=== PATIENT | male | born 1950 | race Caucasian/White ===

== ENCOUNTER → 2016-09-20 | Outpatient (CLI) | payer BC ==
[~2016-09-20] MED LIST: ASP81CT PO; ATOR20TA66 PO; ATRV10T PO; CALC-80 PO; CHOL200018 PO; CYAN500L PO; FLAX100031 PO; MULT-35 PO; MULT-608 PO; NF-METANX PO
== END ==
LOC: PREOP 05:34
PROVIDERS: ATTEND Surgery Pediatric Surgery
DX: Z01.818 Encounter for other preprocedural examination (principal); Z12.11 Encounter for screening for malignant neoplasm of colon; Z86.010 Personal history of colon polyps

== ENCOUNTER → 2016-10-16 | Outpatient (CLI) | payer BC ==
[~2016-10-16] VITALS: Ht 193 cm; Wt 97.5 kg
--- OUTSIDE RECORDS SUMMARY | 2016-10-16 05:45 | XMS REPORT | Continuity of Care Document ---
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 04/26/2011 Ot 780.2 SYNCOPE AND COLLAPSE 04/26/2011 Ot 786.59 CHEST PAIN NEC 04/26/2011 Ot V58.66 LONG-TERM (CURRENT) USE OF ASPIRIN 04/26/2011 Ot V58.69 OTH MED,LT,CURRENT USE 07/21/2011 Ot 603.9 HYDROCELE NOS 07/21/2011 Ot 608.1 SPERMATOCELE 07/21/2011 Ot 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 09/23/2013 SINAN GIORDANO DO Ot 211.3 BENIGN NEOPLASM LG BOWEL 09/23/2013 SINAN GIORDANO DO Ot V76.51 SCREEN MAL NEOP-COLON 07/06/2014 Ot 414.00 07/06/2014 Ot 786.50 07/06/2014 Ot 608.89 07/06/2014 Ot 608.1 07/06/2014 Ot V72.84 07/06/2014 Ot V74.8 07/06/2014 Ot 789.00 07/06/2014 SINAN GIORDANO DO Ot V72.84 07/06/2014 SINAN GIORDANO DO Ot V72.84 07/06/2014 Ot 414.00 07/06/2014 Ot 786.50 07/06/2014 Ot 608.89 07/06/2014 Ot 608.1 07/06/2014 Ot V72.84 07/06/2014 Ot V74.8 07/06/2014 Ot 789.00 07/06/2014 SINAN GIORDANO DO Ot V72.84 07/06/2014 SINAN GIORDANO DO Ot V72.84 09/13/2016 Ot 414.00 CORON ATHEROSCLER NOS TYPE VESSEL, NATIV 09/13/2016 Ot 786.50 CHEST PAIN NOS 09/13/2016 Ot 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 09/13/2016 Ot 608.1 SPERMATOCELE 09/13/2016 Ot V72.84 EXAM PRE-OPERATIVE NOS 09/13/2016 Ot V74.8 SCREEN-BACTERIAL DIS NEC 09/13/2016 Ot 789.00 ABDOMINAL PAIN, UNSPECIFIED SITE 09/13/2016 SINAN GIORDANO DO Ot V72.84 EXAM PRE-OPERATIVE NOS 09/13/2016 SINAN GIORDANO DO Ot V72.84 EXAM PRE-OPERATIVE NOS 09/18/2016 Ot 414.00 CORON ATHEROSCLER NOS TYPE VESSEL, NATIV 09/18/2016 Ot 786.50 CHEST PAIN NOS 09/18/2016 Ot 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 Visit Date/Time Discharge Status Pt. Type Provider Facility Loc./Unit Complaint [id number] 09/23/2013 11:54:00 2013 14:50:00 DIS Outpatient SINAN GIORDANO DO [facility] SCREENING [id number] 09/18/2013 07:18:00 2013 23:59:59 CLS Outpatient SINAN GIORDANO DO [facility] PREOP SCREENING [id number] 07/09/2013 08:12:00 2012 23:59:59 CLS Outpatient SINAN GIORDANO DO [facility] PREOP SCREENING [id number] 10/16/2016 05:41:00 ACT Outpatient DEEDEE DIAZ MD [facility] PREOP HISTORY POLYPS [id number] 09/20/2016 05:34:00 ACT Outpatient DEEDEE DIAZ MD [facility] PREOP SCREENING [id number] 07/16/2012 14:42:00 Document Registration [id number] 07/20/2011 05:43:00 Document Registration [id number] 07/17/2011 13:24:00 Document Registration [id number] 07/10/2011 11:46:00 Document Registration [id number] 04/26/2011 08:42:00 Document Registration [id number] 04/24/2011 06:36:00 Document Registration [id number] 02/16/2009 15:22:00 Document Registration
== END ==
LOC: PREOP 05:41
PROVIDERS: ATTEND Surgery Pediatric Surgery
DX: Z01.818 Encounter for other preprocedural examination (principal); Z12.11 Encounter for screening for malignant neoplasm of colon; Z86.010 Personal history of colon polyps

== ENCOUNTER 2016-10-18 08:37 | Day surgery (SDC) | payer BC ==
--- OUTSIDE RECORDS SUMMARY | 2016-10-18 08:41 | XMS REPORT | Continuity of Care Document ---
Author Author [facility] Organization [facility] Address Unknown Phone Unavailable Allergies Active Description Code Type Severity Reaction Onset Reported/Identified Relationship to Patient Clinical Status Yes iVP DYE iVP DYE Mild SMALL .5 CM HIV 03/20/2008 Yes No Known Drug Allergies [id number] Drug Allergy Unknown N/ A 10/16/2016 Medications Problems Date Dx Coded Attending Type [...] Status Pt. Type Provider Facility Loc./Unit Complaint [id number] 09/23/2013 11:54:00 2013 14:50:00 DIS Outpatient SINAN GIORDANO DO [facility] SCREENING [id number] 09/18/2013 07:18:00 2013 23:59:59 CLS Outpatient SINAN GIORDANO DO [facility] PREOP SCREENING [id number] 07/09/2013 08:12:00 2012 23:59:59 CLS Outpatient SINAN GIORDANO DO [facility] PREOP SCREENING [id number] 10/16/2016 05:41:00 ACT Outpatient DEEDEE DIAZ MD [facility] PREOP HISTORY POLYPS [id number] 09/20/2016 05:34:00 ACT Outpatient DEEDEE DIAZ MD [facility] PREOP SCREENING [id number] 07/16/2012 14:42:00 Document Registration [id number] 07/20/2011 05:43:00 Document Registration [id number] 07/17/2011 13:24:00 Document Registration [id number] 07/10/2011 11:46:00 Document Registration [id number] 04/26/2011 08:42:00 Document Registration [id number] 04/24/2011 06:36:00 Document Registration [id number] 02/16/2009 15:22:00 Document Registration
--- OUTSIDE RECORDS SUMMARY | 2016-10-18 08:41 | XMS REPORT | Continuity of Care Document ---
Author Author [facility] Organization [facility] Address Unknown Phone Unavailable Allergies Active Description Code Type Severity Reaction Onset Reported/Identified Relationship to Patient Clinical Status Yes iVP DYE iVP DYE Mild SMALL .5 CM HIV 03/20/2008 Yes No Known Drug Allergies [id number] Drug Allergy Unknown N/ A 10/16/2016 Medications [...] Status Pt. Type Provider Facility Loc./Unit Complaint [id number] 09/23/2013 11:54:00 2013 14:50:00 DIS Outpatient SINAN GIORDANO DO [facility] SCREENING [id number] 09/18/2013 07:18:00 2013 23:59:59 CLS Outpatient SINAN GIORDANO DO [facility] PREOP SCREENING [id number] 07/09/2013 08:12:00 2012 23:59:59 CLS Outpatient SINAN GIORDANO DO [facility] PREOP SCREENING [id number] 10/16/2016 05:41:00 ACT Outpatient DEEDEE DIAZ MD [facility] PREOP HISTORY POLYPS [id number] 09/20/2016 05:34:00 ACT Outpatient DEEDEE DIAZ MD [facility] PREOP SCREENING [id number] 07/16/2012 14:42:00 Document Registration [id number] 07/20/2011 05:43:00 Document Registration [id number] 07/17/2011 13:24:00 Document Registration [id number] 07/10/2011 11:46:00 Document Registration [id number] 04/26/2011 08:42:00 Document Registration [id number] 04/24/2011 06:36:00 Document Registration [id number] 02/16/2009 15:22:00 Document Registration
[2016-10-18 08:55] VITALS: BP 159/83
[2016-10-18] MEDS ORDERED: MIDAZOLAM 2 MG/2 ML (VERSED) VIAL ONE ×3 (08:56→08:57)
[2016-10-18] MEDS ORDERED: LIDOCAINE JELLY 2% (XYLOCAINE) 5 ML TUBE ONE (08:57)
[2016-10-18] MEDS ORDERED: NALOXONE 0.4 MG/ML 1 ML (NARCAN) VIAL IVP PRN (09:00)
[2016-10-18] MEDS ORDERED: FLUMAZENIL (ROMAZICON) 0.1 MG/ML 5 ML VIAL INJ PRN (09:00)
[2016-10-18] MEDS ORDERED: NS IV 500 ML 500 ML IV ONE (09:00)
--- NOTE | 2016-10-18 09:04 | Progress Note-Pre Operative ---
Pre-Operative Progress Note H&P Reviewed The H&P was reviewed, patient examined and no changes noted. Date H&P Reviewed: Oct 18, 2016 Time H&P Reviewed: 08:45 Pre-Operative Diagnosis: hx polyp DEEDEE DIAZ MD Oct 18, 2016 9:04 am
--- NOTE | 2016-10-18 09:04 | Conscious Sedation/ASA ---
Conscious Sedation Pre-Proced Time Reviewed: 08:45 ASA Class: 2 Airway Mallampati Classification: ([place] appropriate class) I. II. III, IV Lungs Heart ASA score ASA 1: a normal healthy patient ASA 2: a patient with a mild systemic disease (mid diabetes, controlled hypertension, obesity ASA 3: a patient with a severe systemic disease that limits activity (angina , COPD, prior Myocardial infarction) ASA 4: a patient with an incapacitating disease that is a constant threat to life (CHF, renal failure) ASA 5: a moribund patient not expected to survive 24 hrs. (ruptured aneurysm) ASA 6: a declared brain patient whose organs are being harvested. For emergent operations, add the letter E after the classification Grade 2 Sedation Plan: Analgesia, Amnesia, Plan communicated to team members, Discussed options with patient/fam, Discussed risks with patient/fam Note The patient is an appropriate candidate to undergo the planned procedure, sedation, and anesthesia. The patient immediately re-assessed prior to indication. DEEDEE DIAZ MD Oct 18, 2016 9:04 am
[2016-10-18] MEDS: fentaNYL INJECTION 100 MCG/2 ML AMP IVP PRN ×4 (09:08→09:32)
[2016-10-18] MEDS: MIDAZOLAM 2 MG/2 ML (VERSED) VIAL IVP PRN ×3 (09:10→09:30)
[2016-10-18] MEDS ORDERED: HYDROcodone/APAP 5 MG/325 MG (LORTAB) TAB PO PRN (09:15)
[2016-10-18] MEDS ORDERED: ONDANSETRON 4 MG/2 ML (SDV) Z0FRAN IV PRN (09:15)
[2016-10-18] MEDS ORDERED: morphine INJ 10 MG/ML 1ML (SYR OR VIAL) IV PRN (09:15)
[2016-10-18] MEDS ORDERED: ACETAMINOPHEN 325 MG TABLET/CAPLET (TYLENOL) PO PRN (09:15)
[2016-10-18 09:50] VITALS: BP 111/72
--- NOTE | 2016-10-18 09:59 | Progress Note-Post Operative ---
Post-Operative Progess Note Pre-Operative Diagnosis hx polyp Post-Operative Diagnosis chronic stage 2 ext and int hemorrhoids, benign anal skin tag. Post-Op Procedure Note Date of Procedure: Oct 18, 2016 Name of Procedure: Colonoscopy Anesthesia Type CS Estimated blood loss (mL): DEEDEE Ritter MD Oct 18, 2016 9:59 am
--- NOTE | 2016-10-18 10:00 | Discharge Inst-Surgical ---
D/C Lap Instructions-EMILY Follow Up 7-10 years Activity as tolerated High Fiber Diet 25g or more per day Avoid Alcohol, Caffeine, Spicy Maxe[place] and Acid foods. Drink 64 fluid oz or more of fluids per day. Symptoms to Report: Fever over 101 degree F, Nausea/Vomiting If any problems/questions: Contact your physician or go to Emergency Room DEEDEE DIAZ MD Oct 18, 2016 10:00 am
[2016-10-18 10:20] VITALS: BP 121/78
[2016-10-18 10:38] VITALS: BP 121/78
--- NOTE | 2016-10-19 09:34 | OPERATIVE REPORT ---
PROCEDURE PHYSICIAN: DEEDEE MURPHY DATE OF PROCEDURE: 10/18/2016 ATTENDING PRIMARY CARE PHYSICIAN: Dr. Presley. PREOPERATIVE DIAGNOSES: History of colon polyp. POSTOPERATIVE DIAGNOSES: 1. Chronic, stage II external and internal hemorrhoids. 2. Benign anal skin tag. 3. The remainder of the rectum and colon were normal. PROCEDURE: Colonoscopy. SURGEON: Dr. Murphy. ANESTHESIA: Conscious sedation. ESTIMATED BLOOD LOSS: Minimal. FINDINGS: 1. Chronic, stage II external and internal hemorrhoids with benign anal skin tag. 2. The remainder of the rectum and colon were normal. 3. There were no polyps or any neoplasms identified. DISPOSITION: The patient tolerated the procedure well. BRIEF HISTORY: Mr. Almas Muñoz is a 66-year-old male in need of a follow-up colonoscopy. His last colonoscopy was approximately 5 years ago where he was found to have a polyp which was removed and found to be benign. He reports for the most part he is doing well and does not have any major issues with diarrhea nor constipation, as well as no red blood per rectum nor any dark tarry stools. He also does not report any family history of colon cancer. PROCEDURE: The patient was brought to the endoscopy suite, laid in the left lateral decubitus position with the head slightly elevated. After adequate IV pain and sedative medication and conscious sedation anesthesia, a digital rectal examination was performed. Chronic, stage II external and internal hemorrhoids were identified which were not actively edematous or inflamed and no bleeding. There was also a small pedunculated skin tag which appeared benign and asymptomatic. Normal sphincter tone was felt and there were no palpable masses. The prostate gland was palpable and appeared normal. The endoscope was then intubated into the anus and the rectum gently insufflated. The endoscope was then advanced through the valves of Garcia the rectum with no polyps or any neoplasms identified. We then advanced the endoscope through the sigmoid colon where no diverticulosis identified. We then proceeded through the remainder of the descending, transverse, and ascending colon to the cecum. These segments were normal. There were no polyps or any neoplasms identified throughout the colon or rectum. The endoscope was then slowly withdrawn while taking a second look and suctioning of residual air with no additional findings. The patient tolerated the procedure well. We will have him continue with medical management with a high fiber diet with at least 30 grams of fiber per day, as well as at least 64 fluid ounces of water daily to promote soft stools on a daily basis. He does not need another colonoscopy for another 7 to 10 years. Job ID: [id number] Dictated Date: 10/18/2016 09:47:12 Bomb Loader Date: 10/19/2016 09:28:32 / carloz PORRAS
== END 2016-10-18 10:38 | disposition home or self-care (01) ==
LOC: ENDO 08:37
PROVIDERS: ATTEND Surgery Pediatric Surgery
DX: K64.1 Second degree hemorrhoids (principal); K64.4 Residual hemorrhoidal skin tags; Z86.010 Personal history of colon polyps

== ENCOUNTER 2017-05-14 07:06 | Outpatient (RCR) | payer BC, MEDICARE ==
[~2017-05-14 07:06] MED LIST changes: -CATHETER FLUSH 10 ML SYR IV PRN
== END 2017-08-12 | disposition home or self-care (01) ==
LOC: CARD 07:06
PROVIDERS: ATTEND Physician Assistant
DX: I25.10 Atherosclerotic heart disease of native coronary artery without angina pectoris (principal); I97.3 Postprocedural hypertension; E78.2 Mixed hyperlipidemia; R55 Syncope and collapse; Z82.49 Family history of ischemic heart disease and other diseases of the circulatory system
CPT/HCPCS: 93225; 93226

== ENCOUNTER → 2017-05-14 | Outpatient (CLI) | payer BC, MEDICARE ==
[~2017-05-14] VITALS: Ht 190.5 cm; Wt 98.9 kg
[~2017-05-14] MED LIST changes: +CATHETER FLUSH 10 ML SYR IV PRN
[2017-05-14 09:05] VITALS: BP 137/69
== END ==
LOC: CARD 07:02
PROVIDERS: ATTEND Physician Assistant
DX: I25.10 Atherosclerotic heart disease of native coronary artery without angina pectoris (principal); I10 Essential (primary) hypertension; E78.5 Hyperlipidemia, unspecified; R55 Syncope and collapse; Z82.49 Family history of ischemic heart disease and other diseases of the circulatory system
CPT/HCPCS: 78452; 93017

== ENCOUNTER → 2017-05-21 | Outpatient (CLI) | payer BC, MEDICARE ==
[2017-05-21] VITALS (25 sets, daily range): BP systolic 66–146; BP diastolic 41–100
[~2017-05-21] MED LIST changes: +ATROPINE INJECTION 1 MG/10 ML SYR (ABBOTT) ONE; +NS IV 1000 ML 1,000 ML ONE
--- NOTE | 2017-05-21 10:46 | Cardiology Tilt Table Test ---
Cardiology-Tilt Table Test Tilt Table Test Date 05/21/17 Baseline Vitals Vital Signs Date Time Temp Pulse Resp B/P (MAP) Pulse Ox O2 Delivery O2 Flow Rate FiO2 05/21/17 09:59 57 17 146/83 99 Room Air Vital Signs VS - Last 72 Hours, by Label 05/21/17 05/21/17 05/21/17 05/21/17 09:59 10:03 10:05 10:06 Pulse 57 63 68 68 Resp 17 18 B/P (MAP) 146/83 144/87 127/82 144/100 Pulse Ox 99 O2 Delivery Room Air 05/21/17 05/21/17 05/21/17 05/21/17 10:07 10:08 10:09 10:10 Pulse 70 63 71 73 B/P (MAP) 141/86 138/94 126/87 130/100 05/21/17 05/21/17 05/21/17 05/21/17 10:11 10:12 10:14 10:15 Pulse 70 60 60 66 B/P (MAP) 137/92 138/89 144/86 05/21/17 05/21/17 05/21/17 05/21/17 10:16 10:17 10:18 10:19 Pulse 60 62 82 96 B/P (MAP) 132/90 125/79 116/83 113/82 05/21/17 05/21/17 05/21/17 05/21/17 10:20 10:21 10:22 10:23 Pulse 100 103 98 87 B/P (MAP) 124/88 95/67 109/73 05/21/17 05/21/17 05/21/17 05/21/17 10:24 10:25 10:26 10:27 Pulse 93 89 82 81 B/P (MAP) 76/56 86/60 82/53 05/21/17 05/21/17 05/21/17 05/21/17 10:28 10:29 10:33 10:35 Pulse 75 63 52 55 B/P (MAP) 66/41 126/71 122/79 Patient was tilted to 75 degrees for [10] minutes, then returned to supine position, given [2] sublingual nitroglycerin tablets, then tilted again to 75 degrees for [15] minutes. During test, patient was: had a syncopal event at minute (8, stage 2. BP 66/41 , HR 75. ) In Conclusion;: Vasovagal Syncope with (Vasodepressor Syncope) .Patient was hypotensive and symptomatic 5 min prior to syncopal episode. Has underlying bradycardia, although heart rate remained stable throughout test. I will avoid the use of beta blockers. Patient was instructed to increase fluids. Discussed use of LARRY hose. This is Ade Ortez PA-C as a scribe for Dr. Viveros. ADE KEANE May 21, 2017 10:46
== END ==
LOC: CARD 08:41
PROVIDERS: ATTEND Physician Assistant
DX: I25.10 Atherosclerotic heart disease of native coronary artery without angina pectoris (principal); E78.5 Hyperlipidemia, unspecified; I97.3 Postprocedural hypertension; R55 Syncope and collapse; Z82.49 Family history of ischemic heart disease and other diseases of the circulatory system
CPT/HCPCS: 93306; 93660

== ENCOUNTER 2018-03-16 12:30 | Outpatient (RCR) | payer BC, MEDICARE ==
[~2018-03-16 12:30] MED LIST changes: -ATROPINE INJECTION 1 MG/10 ML SYR (ABBOTT) ONE; -NS IV 1000 ML 1,000 ML ONE
== END 2018-05-21 | disposition home or self-care (01) ==
LOC: CARD 12:30
PROVIDERS: ATTEND Family Medicine
DX: R55 Syncope and collapse (principal)
CPT/HCPCS: 93270

== ENCOUNTER 2019-01-13 20:00 | Observation (INO) | payer MEDICARE, OTHER ==
[~2019-01-13] VITALS: Ht 193 cm; Wt 87.1 kg
[2019-01-13] MEDS ORDERED: NS IV 1000 ML 1,000 ML IV ONE (20:09)
[2019-01-13 20:15] LABS: BASOPHILS % (AUTO) 0 % (0-10); EOSINOPHILS # (AUTO) 0.3 10^3/uL (0.0-0.3); EOSINOPHILS % (AUTO) 3 % (0-10); HEMATOCRIT 41 % (40-54); HEMOGLOBIN 13.8 G/DL (13.3-17.7); LYMPHOCYTES # (AUTO) 2.9 X 10^3 (1.0-4.0); LYMPHOCYTES % (AUTO) 35 % (12-44); MEAN CORPUSCULAR HEMOGLOBIN 32 PG (25-34); MEAN CORPUSCULAR HGB CONC 34 G/DL (32-36); MEAN CORPUSCULAR VOLUME 95 FL (80-99); MEAN PLATELET VOLUME 10.8 FL (7.4-10.4); MONOCYTES # (AUTO) 0.8 X 10^3 (0.0-1.0); MONOCYTES % (AUTO) 10 % (0-12); NEUTROPHILS # (AUTO) 4.3 X 10^3 (1.8-7.8); NEUTROPHILS % (AUTO) 51 % (42-75); PLATELET COUNT 193 10^3/uL (130-400); RED CELL DISTRIBUTION WIDTH 12.7 % (10.0-14.5); WHITE BLOOD COUNT 8.3 10^3/uL (4.3-11.0)
--- NOTE | 2019-01-13 20:24 | ED Neurological Problem ---
General Stated Complaint: SYNCOPAL EPISODE Source: patient Exam Limitations: no limitations, physical impairment History of Present Illness Date Seen by Provider: Jan 13, 2019 Time Seen by Provider: 20:03 Initial Comments Here by EMS with report of syncopal episode versus seizure versus possible stroke. Son reports that he and his dad were at the house and he heard a weird breathing noise coming from his dad who was downstairs. He has heard that before when his father apparently has had at least 2 other episodes of seizures or seizure-like activity. He went downstairs and found his dad laying on the couch with the clenched mouth breathing but not significantly shaking. He was a little stiff. It does not appear that he fell although the coffee table was moved back a little bit. No obvious signs of injury. EMS was summoned. He was somewhat responsive when EMS arrived and has improved since. Patient does have history of at least one seizure in the past but is not currently on medications for this. He is answering questions and following commands but does appear somewhat confused. Initial blood pressure in the 200s systolic but that has improved per EMS. Blood sugar low 100s per EMS. No obvious injuries. Patient denies any complaints but is confused. Last known well time 1930. He has had rather significant workup per the son regarding this and they have not found anything including seizure disorder on those workups. Apparently he will start to feel weak and then this will happen and they're not sure if its low blood sugar, low blood pressure or high blood pressure that may be precipitating it. Son does report that the patient had just made a cup of coffee but did not get to it when this had happened. Timing/Duration: unknown Severity: moderate Associated Symptoms: confusion; No fever/chills; loss of consciousness; No nausea/vomiting; seizures, weakness Allergies and Home Medications Allergies Coded Allergies: No Known Drug Allergies (Unverified , 10/16/16) Home Medications Atorvastatin Calcium 20 Mg Tablet, 10 MG PO HS, (Reported) Patient Home Medication List Home Medication List Reviewed: Yes Review of Systems Review of Systems Constitutional: see HPI; No chills, No fever Eyes: No Symptoms Reported Respiratory: no symptoms reported Cardiovascular: see HPI Psychiatric/Neurological: See HPI Unable to completely review of systems due to altered mental status. Past Kcwyktz-Uezwbw-Gjwpmv Hx Past Med/Social Hx: Reviewed Nursing Past Med/Soc Hx Patient Social History Smoking Status: Former Smoker Former Smoker, Quit: Oct 16, 1977 Recent Hopitalizations: No Seasonal Allergies Seasonal Allergies: No Past Medical History Cardiac: Yes High Cholesterol Reproductive Disorders: No Sexually Transmitted Disease: No HIV/AIDS: No Gastrointestinal: Yes Polyps Arthritis Loss of Vision: Bilateral Hearing Impairment: Denies Adverse Reaction/Blood Tranf: No (N/A) Family Medical History Reviewed Nursing Family Hx Physical Exam Vital Signs Vital Signs - First Documented 01/13/19 20:01 Temp 98.4 Pulse 115 Resp 16 B/P (MAP) 167/95 (119) Capillary Refill : Height, Weight, BMI Height: 6'4.00" Weight: 215lbs. 0.0oz. 97.922015oh; 26.2 BMI Method: General Appearance: WD/WN, no apparent distress, other (mildly confused) HEENT: PERRL/EOMI, TMs normal, pharynx normal Neck: non-tender, full range of motion, supple, normal inspection Respiratory: lungs clear, normal breath sounds Cardiovascular: regular rate, rhythm, no murmur Peripheral Pulses: 2+ Dorsalis Pedis (R), 2+ Left Dors-Pedis (L), 2+ Radial Pulses (R), 2+ Radial Pulses (L) Gastrointestinal: non tender, soft Back: normal inspection, no CVA tenderness, no vertebral tenderness Extremities: normal range of motion, non-tender, normal inspection Neurologic/Psychiatric: alert, normal mood/affect, other (disoriented to time but alert to person and place) Crainal Nerves: normal hearing, normal speech, PERRL Coordination/Gait: normal finger to nose Motor/Sensory: no motor deficit, no sensory deficit, no pronator drift Skin: normal color, warm/dry Progress/Results/Core Measures Results/Orders Lab Results Laboratory Tests Test 01/13/19 20:04 01/13/19 20:15 Range/Units White Blood Count 8.3 4.3-11.0 10^3/uL Red Blood Count 4.34 L 4.35-5.85 10^6/uL Hemoglobin 13.8 13.3-17.7 G/DL Hematocrit 41 40-54 % Mean Corpuscular Volume 95 80-99 FL Mean Corpuscular Hemoglobin 32 25-34 PG Mean Corpuscular Hemoglobin Concent 34 32-36 G/DL Red Cell Distribution Width 12.7 10.0-14.5 % Platelet Count 193 130-400 10^3/uL Mean Platelet Volume 10.8 H 7.4-10.4 FL Neutrophils (%) (Auto) 51 42-75 % Lymphocytes (%) (Auto) 35 12-44 % Monocytes (%) (Auto) 10 0-12 % Eosinophils (%) (Auto) 3 0-10 % Basophils (%) (Auto) 0 0-10 % Neutrophils # (Auto) 4.3 1.8-7.8 X 10^3 Lymphocytes # (Auto) 2.9 1.0-4.0 X 10^3 Monocytes # (Auto) 0.8 0.0-1.0 X 10^3 Eosinophils # (Auto) 0.3 0.0-0.3 10^3/uL Basophils # (Auto) 0.0 0.0-0.1 10^3/uL Prothrombin Time 13.9 12.2-14.7 SEC INR Comment 1.0 0.8-1.4 Activated Partial Thromboplast Time 26 24-35 SEC D-Dimer 0.47 0.00-0.49 UG/ML Sodium Level 137 135-145 MMOL/L Potassium Level 3.3 L 3.6-5.0 MMOL/L Chloride Level 105 98-107 MMOL/L Carbon Dioxide Level 16 L 21-32 MMOL/L Anion Gap 16 H 5-14 MMOL/L Blood Urea Nitrogen 11 7-18 MG/DL Creatinine 0.92 0.60-1.30 MG/DL Estimat Glomerular Filtration Rate > 60 BUN/Creatinine Ratio 12 Glucose Level 94 70-105 MG/DL Calcium Level 9.2 8.5-10.1 MG/DL Corrected Calcium 9.0 8.5-10.1 MG/DL Total Bilirubin 0.4 0.1-1.0 MG/DL Aspartate Amino Transf (AST/SGOT) 29 5-34 U/L Alanine Aminotransferase (ALT/SGPT) 24 0-55 U/L Alkaline Phosphatase 61 40-136 U/L Troponin I < 0.028 <0.028 NG/ML Total Protein 7.3 6.4-8.2 GM/DL Albumin 4.2 3.2-4.5 GM/DL Glucometer 114 H 70-110 MG/DL My Orders Orders - JOSH PINO MD Cbc With Automated Diff (01/13/19 20:) Protime With Inr (01/13/19 20:) Partial Thromboplastin Time (01/13/19 20:09) Comprehensive Metabolic Panel (01/13/19 20:) Fibrin Degradation Products (01/13/19 20:09) Troponin I (01/13/19 20:09) Ua Culture If Indicated (01/13/19 20:) Chest 1 View, Ap/Pa Only (01/13/19 20:) Ekg Tracing (01/13/19 20:) Nothing By Mouth (01/14/19 Breakfast) Accucheck Stat ONCE (01/13/19 20:09) Ed Iv/Invasive Line Start (01/13/19 20:09) Ed Iv/Invasive Line Start (01/13/19 20:09) Vital Signs Stroke Patient Q15M (01/13/19 20:09) Ct Head Wo-R/O Stroke (01/13/19 20:) O2 (01/13/19:) Intake & Output 06,14,22 (01/13/19 20:09) Monitor-Rhythm Ecg Trace Only (01/13/19 20:09) Dysphagia Screening Tool (01/13/19 20:) Lipid Panel (01/14/19 06:00) Ed Iv/Invasive Line Start (01/13/19 20:09) Ns Iv 1000 Ml (Sodium Chloride 0.9%) (01/13/19 20:09) Ed Iv/Invasive Line Start (01/13/19 21:16) Ns Iv 500 Ml (Sodium Chloride 0.9%) (01/13/19 21:16) Ns Iv 500 Ml (Sodium Chloride 0.9%) (01/13/19 21:14) Medications Given in ED Current Medications Medications Dose Ordered Sig/Aliza Route Start Time Stop Time Status Last Admin Dose Admin Sodium Chloride 500 ml @ 0 mls/hr Q0M ONCE IV 01/13/19 21:16 01/13/19 21:17 DC 01/13/19 21:27 999 MLS/HR Sodium Chloride 1,000 ml @ 0 mls/hr Q0M ONCE IV 01/13/19 20:09 01/13/19 20:11 DC 01/13/19 20:35 999 MLS/HR Vital Signs/I&O 01/13/19 20:01 Temp 98.4 Pulse 115 Resp 16 B/P (MAP) 167/95 (119) Progress Progress Note : Progress Note Seen and evaluated. IV by EMS. Labs, EKG, chest x-ray, CT head ordered. Normal saline 1 L bolus. Stroke scale 0 was done by me. Symptoms seem to be improving currently. No indication of TPA due to resolving symptoms and low stroke scale. Monitor patient. 2046: Patient improved but still a little confused and has some repetitive questioning. Likely admission at least for observation. Heart rate improved to 101. Pending UA study. 2115: Studies reviewed. No acute findings and patient is doing a little better but still is slightly confused and has some repetitive questioning. Due to symptoms and history of present illness, patient will be admitted observation status. I did discuss the case with Dr. MELENDEZ and he accepts patient for admission. We will consult Dr. Viveros in the morning. In further discussing with the family, patient does drink up to 2 pots of coffee a day which may be causing some arrhythmia. We will keep him on telemetry overnight. All findings concerns discussed with patient and family who agree with plan. Initial ECG Impression Date: Jan 13, 2019 Initial ECG Impression Time: 20:43 Initial ECG Rate: 101 Initial ECG Rhythm: S.Tach Comment Sinus tachycardia with normal axis. No evidence of ST elevation [place]. Similar but faster than previous of 26 April 2011. Interpreted by me. Diagnostic Imaging Diagonstic Imaging: CT Plain Films/CT/US/NM/MRI: head Comments [facility] [place], [place] NAME: FELIX CHERY [facility] REC#: [id number] PT STATUS: REG ER : 1950 PHYSICIAN: JOSH PINO MD ADMIT DATE: 01/13/19/ER Draft Date of Exam:01/13/19 CT HEAD WO-R/O STROKE PROCEDURE: CT head wo r/o stroke. TECHNIQUE: Multiple contiguous axial images were obtained through the brain without the use of intravenous contrast. Auto Exposure Controls were utilized during the CT exam to meet ALARA standards for radiation dose reduction. INDICATION: Rule out stroke. FINDINGS: Noncontrasted images. There is no evidence of intracranial hemorrhage. The ventricles and cortical gyral pattern are normal. There is no mass effect. No extra-axial fluid collection. Basal cisterns are clear. Mastoid air cells are well-aerated and clear. There is mucosal thickening in the ethmoid sinuses. There are no calvarial fractures. IMPRESSION: 1. No acute intracranial abnormalities to suggest hemorrhagic stroke or mass effect. 2. Findings consistent with inflammatory changes of the paranasal sinuses. Dictated on workstation # [id number] Dict: 01/13/192024 Trans: 01/13/192026 ACB [id number] Interpreted by: RICK MITCHELL MD Electronically signed by: Lulu Imaging: Xray Plain Films/CT/US/NM/MRI: chest Comments NAME: FELIX CHERY MED REC#: [id number] PT STATUS: REG ER : 1950 PHYSICIAN: JOSH PINO MD ADMIT DATE: 01/13/19/ER Signed Date of Exam: 01/13/19 CHEST 1 VIEW, AP/PA ONLY INDICATION: Altered mental status. Shortness of breath. COMPARISON with 04/26/2011. FINDINGS: The lungs are well-aerated. There are no infiltrates. No pneumothorax or pleural effusion. Heart is not enlarged. No pulmonary edema. IMPRESSION: Normal portable chest. Dictated by: Dictated on workstation # [id number] Dict: 01/13/192032 Trans: 01/13/192035 Interpreted by: RICK MITCHELL MD Electronically signed by: RICK MITCHELL MD 01/13/192035 Departure Communication (Admissions) Time/Spoke to Admitting Phy: 21:16 Impression Primary Impression: Altered mental status Qualified Codes: R41.0 - Disorientation, unspecified Additional Impression: Syncope Qualified Codes: R55 - Syncope and collapse Disposition: ADMITTED INPATIENT Condition: Stable Admissions Decision to Admit Reason: Admit from ER (General) Decision to Admit/Date: Jan 13, 2019 Time/Decision to Admit Time: 21:16 Departure-Patient Inst. Referrals: SAE ALFREDO MD (PCP/Family) Primary Care Physician JOSH PINO MD Jan 13, 2019 20:24
[2019-01-13 20:27] LABS: FIBRIN DEGRADATION PRODUCTS 0.47 UG/ML (0.00-0.49); PROTHROMBIN TIME PATIENT 13.9 SEC (12.2-14.7)
--- NOTE | 2019-01-13 20:28 | Diagnostic Imaging Report ---
PROCEDURE: CT head wo r/o stroke. TECHNIQUE: Multiple contiguous axial images were obtained through the brain without the use of intravenous contrast. Auto Exposure Controls were utilized during the CT exam to meet ALARA standards for radiation dose reduction. INDICATION: Rule out stroke. FINDINGS: Noncontrasted images. There is no evidence of intracranial hemorrhage. The ventricles and cortical gyral pattern are normal. There is no mass effect. No extra-axial fluid collection. Basal cisterns are clear. Mastoid air cells are well-aerated and clear. There is mucosal thickening in the ethmoid sinuses. There are no calvarial fractures. IMPRESSION: 1. No acute intracranial abnormalities to suggest hemorrhagic stroke or mass effect. 2. Findings consistent with inflammatory changes of the paranasal sinuses. Dictated by: Dictated on workstation # [id number]
[2019-01-13 20:33] LABS: ALANINE AMINOTRANSFERASE 24 U/L (0-55); ALBUMIN 4.2 GM/DL (3.2-4.5); ALKALINE PHOSPHATASE 61 U/L (40-136); BILIRUBIN,TOTAL 0.4 MG/DL (0.1-1.0); BUN/CREATININE RATIO 12; CALCIUM 9.2 MG/DL (8.5-10.1); CARBON DIOXIDE 16 MMOL/L (21-32); CHLORIDE 105 MMOL/L (98-107); CREATININE SERUM 0.92 MG/DL (0.60-1.30); GFR ESTIMATED > 60; GLUCOSE 94 MG/DL (70-105); POTASSIUM 3.3 MMOL/L (3.6-5.0); SODIUM 137 MMOL/L (135-145); TOTAL PROTEIN 7.3 GM/DL (6.4-8.2)
--- NOTE | 2019-01-13 20:35 | Diagnostic Imaging Report ---
INDICATION: Altered mental status. Shortness of breath. COMPARISON with 04/26/2011. FINDINGS: The lungs are well-aerated. There are no infiltrates. No pneumothorax or pleural effusion. Heart is not enlarged. No pulmonary edema. IMPRESSION: Normal portable chest. Dictated by: Dictated on workstation # [id number]
[2019-01-13] MEDS ORDERED: NS IV 500 ML 500 ML ONE (21:14)
[2019-01-13] MEDS ORDERED: NS IV 500 ML 500 ML IV ONE (21:16)
[2019-01-13 21:36] LABS: BILIRUBIN,URINE NEGATIVE (NEGATIVE); CLARITY,URINE CLEAR; COLOR,URINE YELLOW; GLUCOSE, URINE (UA) NEGATIVE (NEGATIVE); KETONES,URINE 1+ (NEGATIVE); LEUKOCYTE ESTERASE ,URINE NEGATIVE (NEGATIVE); NITRITE,URINE NEGATIVE (NEGATIVE); PH,URINE 6.5 (5-9); PROTEIN,URINE 3+ (NEGATIVE); UROBILINOGEN,URINE NORMAL (NORMAL)
[2019-01-13 21:42] LABS: BACTERIA,URINE NEGATIVE /HPF
[2019-01-13 22:04] LABS: MAGNESIUM 2.5 MG/DL (1.8-2.4)
[2019-01-13 22:15] VITALS: BP 184/88
[2019-01-13 22:22] VITALS: BP 180/92
[2019-01-13 22:30] LABS: TSH (THYROID ANALYZER) 2.47 UIU/ML (0.35-4.94)
[2019-01-14] VITALS (7 sets, daily range): BP systolic 87–177; BP diastolic 50–92
[2019-01-14] MEDS ORDERED: ONDANSETRON 4 MG/2 ML (SDV) Z0FRAN IV PRN (01:00)
[2019-01-14] MEDS ORDERED: NS IV 1000 ML 1,000 ML IV SCH (01:00)
[2019-01-14 05:48] LABS: BASOPHILS % (AUTO) 0 % (0-10); EOSINOPHILS # (AUTO) 0.1 10^3/uL (0.0-0.3); EOSINOPHILS % (AUTO) 1 % (0-10); HEMATOCRIT 38 % (40-54); HEMOGLOBIN 12.7 G/DL (13.3-17.7); LYMPHOCYTES # (AUTO) 1.7 X 10^3 (1.0-4.0); LYMPHOCYTES % (AUTO) 18 % (12-44); MEAN CORPUSCULAR HEMOGLOBIN 31 PG (25-34); MEAN CORPUSCULAR HGB CONC 34 G/DL (32-36); MEAN CORPUSCULAR VOLUME 94 FL (80-99); MEAN PLATELET VOLUME 10.8 FL (7.4-10.4); MONOCYTES % (AUTO) 11 % (0-12); NEUTROPHILS # (AUTO) 6.6 X 10^3 (1.8-7.8); NEUTROPHILS % (AUTO) 69 % (42-75); PLATELET COUNT 174 10^3/uL (130-400); RED CELL DISTRIBUTION WIDTH 12.8 % (10.0-14.5); WHITE BLOOD COUNT 9.5 10^3/uL (4.3-11.0)
[2019-01-14 06:04] LABS: ALANINE AMINOTRANSFERASE 23 U/L (0-55); ALBUMIN 3.7 GM/DL (3.2-4.5); ALKALINE PHOSPHATASE 53 U/L (40-136); BILIRUBIN,TOTAL 0.4 MG/DL (0.1-1.0); BUN/CREATININE RATIO 13; CARBON DIOXIDE 22 MMOL/L (21-32); CHLORIDE 108 MMOL/L (98-107); CHOLESTEROL 143 MG/DL (< 200); CREATININE SERUM 0.78 MG/DL (0.60-1.30); GFR ESTIMATED > 60; GLUCOSE 104 MG/DL (70-105); HDL CHOLESTEROL 48 MG/DL (40-60); POTASSIUM 3.3 MMOL/L (3.6-5.0); SODIUM 139 MMOL/L (135-145); TOTAL PROTEIN 6.3 GM/DL (6.4-8.2); TRIGLYCERIDES 36 MG/DL (<150); VLDL CHOLESTEROL 7 MG/DL (5-40)
[2019-01-14] MEDS ORDERED: MULT1TAB69 PO (09:26)
[2019-01-14] MEDS ORDERED: ATOR10TA66 PO (09:26)
--- NOTE | 2019-01-14 09:26 | NUR ---
PATIENT STATES HE TAKES LIPITOR 10MG DAILY (WHICH I VERIFIED WITH THE EXT MED HX) AND A ONCE DAILY VITAMIN OTC DAILY.
--- NOTE | 2019-01-14 12:47 | Consultation-Cardiology ---
HPI-Cardiology Cardiology Consultation Date of Consultation 01/14/19 Date of Admission Time Seen by Provider: 12:42 Indication: syncope HPI 68 years old gentleman with history of hypertension. Has been in his usual state of health, had a syncopal episode in January 2017 and January 2018, underwent extensive workup and [facility]. Was doing well until yesterday evening, he was preparing cup of coffee and felt extremely tired and felt that he was going to pass out. Went and laid down on the couch and then he was witnessed by his son that he was having some convulsions, was unresponsive, EMS were called. Brought to the hospital, does not recall the events. Denied any chest pain. Denied any shortness of breath. No palpitation. Home Medications & Allergies Allergies: Coded Allergies: No Known Drug Allergies (Unverified , 10/16/16) Home Medication List Reviewed: Yes VHV-Hwszmd-Ygzoxc Hx Patient Social History Marital Status: Employed/Student: employed Alcohol Use: Denies Use Recreational Drug Use: No Smoking Status: Former Smoker Recent Foreign Travel: No Recent Infectious Disease Expo: No Recent Hopitalizations: No Immunizations Up To Date Date of Pneumonia Vaccine: Jul 20, 1976 Past Medical History discussed below Family Medical History Family History: Cardiovascular disease 19 FATHER 19 MOTHER Hypertension 19 FATHER 19 MOTHER Respiratory disorder 19 FATHER 19 MOTHER Review of Systems-General Review of Systems Constitutional: see HPI; No chills, No fever; malaise EENTM: see HPI, no symptoms reported Respiratory: no symptoms reported, see HPI; No cough, No dyspnea on exertion, No hemoptysis, No orthopnea, No phlegm, No short of breath, No stridor, No wheezing, No other Cardiovascular: see HPI; No chest pain, No edema, No Hx of Intervention, No palpitations; syncope; No vascular heart diseas, No other Gastrointestinal: no symptoms reported, see HPI Genitourinary: no symptoms reported, see HPI Musculoskeletal: no symptoms reported, see HPI Skin: no symptoms reported, see HPI Psychiatric/Neurological: No Symptoms Reported, See HPI Reviewed Test Results Reviewed Test Results Lab Laboratory Tests Test 01/13/19 20:04 01/13/19 20:15 01/13/19 21:25 01/14/19 05:05 Range/Units White Blood Count 8.3 9.5 4.3-11.0 10^3/uL Red Blood Count 4.34 L 4.04 L 4.35-5.85 10^6/uL Hemoglobin 13.8 12.7 L 13.3-17.7 G/DL Hematocrit 41 38 L 40-54 % Mean Corpuscular Volume 95 94 80-99 FL Mean Corpuscular Hemoglobin 32 31 25-34 PG Mean Corpuscular Hemoglobin Concent 34 34 32-36 G/DL Red Cell Distribution Width 12.7 12.8 10.0-14.5 % Platelet Count 193 174 130-400 10^3/uL Mean Platelet Volume 10.8 H 10.8 H 7.4-10.4 FL Neutrophils (%) (Auto) 51 69 42-75 % Lymphocytes (%) (Auto) 35 18 12-44 % Monocytes (%) (Auto) 10 11 0-12 % Eosinophils (%) (Auto) 3 1 0-10 % Basophils (%) (Auto) 0 0 0-10 % Neutrophils # (Auto) 4.3 6.6 1.8-7.8 X 10^3 Lymphocytes # (Auto) 2.9 1.7 1.0-4.0 X 10^3 Monocytes # (Auto) 0.8 1.0 0.0-1.0 X 10^3 Eosinophils # (Auto) 0.3 0.1 0.0-0.3 10^3/uL Basophils # (Auto) 0.0 0.0 0.0-0.1 10^3/uL Prothrombin Time 13.9 12.2-14.7 SEC INR Comment 1.0 0.8-1.4 Activated Partial Thromboplast Time 26 24-35 SEC D-Dimer 0.47 0.00-0.49 UG/ML Sodium Level 137 139 135-145 MMOL/L Potassium Level 3.3 L 3.3 L 3.6-5.0 MMOL/L Chloride Level 105 108 H 98-107 MMOL/L Carbon Dioxide Level 16 L 22 21-32 MMOL/L Anion Gap 16 H 9 5-14 MMOL/L Blood Urea Nitrogen 11 10 7-18 MG/DL Creatinine 0.92 0.78 0.60-1.30 MG/DL Estimat Glomerular Filtration Rate > 60 > 60 BUN/Creatinine Ratio 12 13 Glucose Level 94 104 70-105 MG/DL Calcium Level 9.2 9.0 8.5-10.1 MG/DL Corrected Calcium 9.0 9.2 8.5-10.1 MG/DL Magnesium Level 2.5 H 1.8-2.4 MG/DL Total Bilirubin 0.4 0.4 0.1-1.0 MG/DL Aspartate Amino Transf (AST/SGOT) 29 43 H 5-34 U/L Alanine Aminotransferase (ALT/SGPT) 24 23 0-55 U/L Alkaline Phosphatase 61 53 40-136 U/L Troponin I < 0.028 <0.028 NG/ML Total Protein 7.3 6.3 L 6.4-8.2 GM/DL Albumin 4.2 3.7 3.2-4.5 GM/DL TSH [place] Testing 2.47 0.35-4.94 UIU/ML Glucometer 114 H 70-110 MG/DL Urine Color YELLOW Urine Clarity CLEAR Urine pH 6.5 5-9 Urine Specific [place] 1.015 L 1.016-1.022 Urine Protein 3+ H NEGATIVE Urine Glucose (UA) NEGATIVE NEGATIVE Urine Ketones 1+ H NEGATIVE Urine Nitrite NEGATIVE NEGATIVE Urine Bilirubin NEGATIVE NEGATIVE Urine Urobilinogen NORMAL NORMAL MG/DL Urine Leukocyte Esterase NEGATIVE NEGATIVE Urine RBC (Auto) 2+ H NEGATIVE Urine RBC 5-10 H /HPF Urine WBC NONE /HPF Urine Crystals NONE /LPF Urine Bacteria NEGATIVE /HPF Urine Casts NONE /LPF Urine Mucus NEGATIVE /LPF Urine Culture Indicated NO Triglycerides Level 36 <150 MG/DL Cholesterol Level 143 < 200 MG/DL LDL Cholesterol Direct 86 1-129 MG/DL VLDL Cholesterol 7 5-40 MG/DL HDL Cholesterol 48 40-60 MG/DL Physical Exam Physical Exam Vital Signs Vital Signs - First Documented 01/13/19 01/13/19 20:01 22:09 Temp 98.4 Pulse 115 Resp 16 B/P (MAP) 167/95 (119) Pulse Ox 98 O2 Delivery Room Air Capillary Refill : Less Than 3 SecondsLess Than 3 Seconds Height, Weight, BMI Height: 6'4.00" Weight: 192lbs. 0.5oz. 87.216872dv; 23.4 BMI Method:Stated General Appearance: No Apparent Distress, WD/WN Eyes: Bilateral Eye Normal Inspection, Bilateral Eye PERRL, Bilateral Eye EOMI HEENT: PERRL/EOMI, TMs Normal, Normal ENT Inspection, Pharynx Normal, Moist Mucous Membranes Neck: Full Range of Motion, Normal Inspection, Non Tender, Supple, Carotid Bruit Respiratory: Chest Non Tender, Normal Breath Sounds, No Accessory Muscle Use, No Respiratory Distress Cardiovascular: Regular Rate, Rhythm, No Edema, No Gallop, No JVD, No Murmur, Normal Peripheral Pulses Gastrointestinal: Normal Bowel Sounds, No Organomegaly, No Pulsatile Mass, Non Tender, Soft Back: Normal Inspection, No CVA Tenderness, No Vertebral Tenderness Extremity: Normal Capillary Refill, Normal Inspection, Normal Range of Motion, Non Tender, No Calf Tenderness, No Pedal Edema Neurologic/Psychiatric: Alert, Oriented x3, No Motor/Sensory Deficits, Normal Mood/Affect Skin: Normal Color, Warm/Dry Lymphatic: No Adenopathy A/P-Cardiology Admission Diagnosis syncope Bradycardia Hypertension hypokalemia Assessment/Plan Syncope, -Patient had syncopal episode January 2017, was evaluated at [facility], had questionable hemorrhagic contusion of head and was transferred to [place] where he was evaluated by neurologist. Diagnosed with cerebral contusion. Had another syncopal episode in January 2018, last episode occurred yesterday. He is describing post ictal symptoms, noted to have few convulsions. He is known to have history of vasodepressive syncope, has underl amie bradycardia and intolerant to beta blockers. I am planning to proceed with loop recorder implantation to rule out any cardiac causes, discussed with Dr. Lopez the possibility of initiating seizure medication and referring him for neurology evaluation Stress test and 2-D echocardiogram which were within normal limits. Tilt table test done revealed vasodepressive syncope. He is intolerant to beta blockers secondary to his underlying bradycardia. was instructed to use LARRY hose, patient did not want to use them Coronary artery disease, mild disease per cardiac catheterization in April 2011. Nonobstructive disease. Most recent stress test done May 2017 revealed no ischemia or infarct, tinea to monitor Mild hypokalemia, continue to monitor electrolytes Hypertension, patient was severely hypertensive upon evaluation with the EMS, continue to be confused, does not recall to transfer from his house to the hospital. Hyperlipidemia, maintained on Lipitor, had a recent lab work for life insurance, he will bring me a copy. Mild nonobstructive carotid artery stenosis-last carotid duplex done in June 2018, continue to monitor. Family history of heart disease. Sinus bradycardia-patient has history of sinus bradycardia, has been asymptomatic, Holter monitor done May 2017 revealed sinus rhythm with occasional PAC, PVC. I am proceeding with loop recorder implant Clinical Quality Measures DVT/VTE Risk/Contraindication: RFS Level Per Nursing on Admit: 0=No Risk/No VTE PPX Stroke: Date of last known well: Jan 13, 2019 SAJAN JACINTO MD Jan 14, 2019 12:47
[2019-01-14] MEDS ORDERED: KCL 20 MEQ TAB (K-DUR) PO NR (13:00)
[2019-01-14] MEDS ORDERED: LIDOCAINE 1% INJ 20 ML 20 ML VIAL ONE (13:20)
--- NOTE | 2019-01-14 15:00 | NUR ---
PT TAKEN OFF FLOOR VIA BED FOR PROCEDURE.
--- NOTE | 2019-01-14 15:11 | History & Physical-Hospitalist ---
History of Present Illness HPI/Chief Complaint The patient is a 68-year-old white male known to me. He had an episode last evening. He reported that he had come home from work feeling both ravenous and tired. He decided to lie down to rest and his son then heard curious noises. He went to check on his father and found him having what by his description would be called a grand mal seizure while lying on the couch. The patient's reported that this is in fact the third of these episodes each of which happened in January the last 2+ years. The first occurred while standing caused him to fall and suffer laceration and bleeding from the head. The episode a year ago happened and the reviewed this and it described it as being consistent with a grand mal seizure. Both the son and his mother reported a ground and then tonic posturing. He had loss of continence of urine with the second episode. In all 3 of these there was some mental dullness and slowness for a period of time to follow. He reports at this time he remembers lying down and then found himself in the hospital. There has been no past history of childhood seizures. There has been no head trauma. CT scan was negative Date Seen 01/14/19 Time Seen by a Provider: 15:06 Attending Physician Skyler Melendez MD PCP Tyson Presley MD Referring Physician Date of Admission Jan 13, 2019 at 21:22 Home Medications & Allergies Home Medications Reviewed patient Home Medication Reconciliation performed by pharmacy medication reconciliations breeder service technician and/or nursing. Patients Allergies have been reviewed. Allergies Allergies Coded Allergies No Known Drug Allergies (Unverified10/16/16) Past Ycbflxa-Ltmxtk-Kuelwo Hx Past Med/Social Hx: Reviewed Nursing Past Med/Soc Hx Patient Social History Marrital Status: Employed/Student: employed Alcohol Use: Denies Use Recreational Drug Use: No Smoking Status: Former Smoker Former Smoker, Quit: Oct 16, 1977 Recent Foreign Travel: No Contact w/other who traveled: No Recent Hopitalizations: No Recent Infectious Disease Expo: No Immunizations Up To Date Date of Pneumonia Vaccine: Jul 20, 1976 Seasonal Allergies Seasonal Allergies: No Past Medical History Cardiac: High Cholesterol Reproductive: No Sexually Transmitted Disease: No HIV/AIDS: No Gastrointestinal: Polyps Musculoskeletal: Arthritis Loss of Vision: Bilateral Hearing Impairment: Denies History of Blood Disorders: No Adverse Reaction to Blood Irizarry: No (N/A) Family History Reviewed Nursing Family Hx Cardiovascular disease 19 FATHER 19 MOTHER Hypertension 19 FATHER 19 MOTHER Respiratory disorder 19 FATHER 19 MOTHER Review of Systems Constitutional: see HPI EENTM: no symptoms reported Respiratory: no symptoms reported Cardiovascular: no symptoms reported Gastrointestinal: no symptoms reported Genitourinary: no symptoms reported Musculoskeletal: other (generalized muscle aching today) Skin: no symptoms reported Psychiatric/Neurological: No Symptoms Reported Physical Exam Physical Exam Vital Signs Vital Signs - First Documented 01/13/19 01/13/19 20:01 22:09 Temp 98.4 Pulse 115 Resp 16 B/P (MAP) 167/95 (119) Pulse Ox 98 O2 Delivery Room Air Capillary Refill : Less Than 3 SecondsLess Than 3 Seconds Height, Weight, BMI Height: 6'4.00" Weight: 192lbs. 0.5oz. 87.894632ib; 23.4 BMI Method:Stated General Appearance: No Apparent Distress, WD/WN Eyes: Bilateral Eye Normal Inspection HEENT: Normal ENT Inspection Neck: Full Range of Motion, Normal Inspection, Non Tender Respiratory: Chest Non Tender, Lungs Clear, Normal Breath Sounds, No Accessory Muscle Use Cardiovascular: Regular Rate, Rhythm, No Edema, No Gallop, No JVD, No Murmur Gastrointestinal: Normal Bowel Sounds, No Organomegaly, No Pulsatile Mass, Non Tender, Soft Back: Normal Inspection, No CVA Tenderness, No Vertebral Tenderness Extremity: Normal Capillary Refill, Normal Inspection, Normal Range of Motion, Non Tender, No Calf Tenderness, No Pedal Edema Neurologic/Psychiatric: Alert, Oriented x3, No Motor/Sensory Deficits, Normal Mood/Affect Skin: Normal Color, Warm/Dry Lymphatic: No Adenopathy Results Results/Procedures Labs Laboratory Tests 01/13/19 20:04 01/14/19 05:05 Patient resulted labs reviewed. Assessment/Plan Admission Diagnosis Episode consistent with grand mal seizure. Admission Status: Observation Clinical Quality Measures DVT/VTE Risk/Contraindication: RFS Level Per Nursing on Admit: 0=No Risk/No VTE PPX Stroke: Date of last known well: Jan 13, 2019 SKYLER MELENDEZ MD Jan 14, 2019 15:11
[2019-01-14] MEDS ORDERED: LEVE500T99 PO (15:20)
--- NOTE | 2019-01-14 15:24 | Discharge Inst-Simple/Standard ---
Discharge Inst-Standard Patient Instructions/Follow Up Plan of Care/Instructions/FU: Medications as listed on the discharge sequence. A new prescription for his seizure medicine has been provided fill this and begin today. And arrange an appointment for Dr. Presley in about 3 weeks. He will adjust the dose of the medication. He should also be able to arrange a neurology/seizure appointment at [facility] or other center of your choice. You are not to drive for a period of 6 months without a seizure. Activity as Tolerated: Yes Goal: Seizure free control. Discharge Diet: No Restrictions JEFFY MELENDEZ MD Jan 14, 2019 15:24
--- NOTE | 2019-01-14 15:43 | Implantation of Loop Monitor ---
Implant of Loop Monitior IMPLANTATION OF LOOP MONITOR REPORT DATE OF PROCEDURE: 01/14/19 PREOP DIAGNOSIS: syncope POSTOP DIAGNOSIS: syncope PROCEDURE DETAILS: The patient is a 68 male with history of paroxysmal atrial fibrillation requiring long-term surveillance. Therefore implantable loop recorder was discussed and agreed with the patient. Informed consent was taken. All risks and complications were discussed at length. The patient was draped and prepped in the usual sterile fashion. Local anesthesia was lidocaine, which was given in the substernal area close to the 4th intercostal space. Loop monitor Impeva with serial number [id number] was implanted according to the protocol. Steri- Strips were placed at the end of the procedure. There were no complications and the patient tolerated the procedure well. The device was interrogated with a v oltage of. ANESTHESIA: Local anesthesia with lidocaine. COMPLICATIONS: None CONTRAST/FLUOROSCOPY: None CONCLUSION: successful implantation of loop recorder would complication FINAL DIAGNOSIS: Syncope Sinus bradycardia SAJAN JACINTO MD Jan 14, 2019 15:43
--- NOTE | 2019-01-14 16:45 | NUR ---
DR JACINTO GAVE ORDERS FOR PT TO DISCHARGE. DR JACINTO WANTS TO SEE PT IN OFFICE NEXT WEEK. WILL MAKE F/U APPT FOR PT.
--- NOTE | 2019-01-14 17:00 | NUR ---
PT STABLE AND READY FOR DISCHARGE PER DR MELENDEZ AND CHYNA ORDERS. WRITTEN AND VERBAL D/C INSTRUCTIONS GONE OVER WITH PT. PT GIVEN SCHEDULED F/U APPOINTMENTS AND NEW PRINTED PRESCRIPTION. NEW MEDICATION EDUCATION GIVEN TO PT. PT SITE COVERED WITH GAUZE AND CDI. PT TAKEN VIA WHEELCHAIR TO PRIVATE VEHICLE BY KODI PONCE.
== END 2019-01-14 15:26 | disposition home or self-care (01) ==
LOC: EDUNIT# 20:01 → ER 20:02 → UNDOADMOB 21:22 → 4TH 21:22 → UNDODISOB 01-14 17:00
PROVIDERS: ADMIT Internal Medicine; ATTEND Internal Medicine
DX: R55 Syncope and collapse (principal); R00.1 Bradycardia, unspecified; I48.0 Paroxysmal atrial fibrillation; E78.00 Pure hypercholesterolemia, unspecified; Z87.891 Personal history of nicotine dependence; M19.91 Primary osteoarthritis, unspecified site; I10 Essential (primary) hypertension; E87.6 Hypokalemia; I25.10 Atherosclerotic heart disease of native coronary artery without angina pectoris; E78.5 Hyperlipidemia, unspecified; I65.29 Occlusion and stenosis of unspecified carotid artery; Z82.49 Family history of ischemic heart disease and other diseases of the circulatory system
CPT/HCPCS: 33285; 36415; 70450; 71045; 80053; 80061; 81000; 82962; 83735; 84443; 84484; 85025; 85379; 85610; 85730; 93005; 93041; 96360; G0378

== ENCOUNTER → 2021-04-27 | Outpatient (CLI) | payer MEDICARE, OTHER ==
[~2021-04-27] MED LIST changes: +ATOR10TA66 PO; +CATHETER FLUSH 10 ML SYR IV PRN; +LEVE500T99 PO; +MULT-567 PO
[2021-04-27 11:28] LABS: ALBUMIN 4.1 GM/DL (3.2-4.5); BILIRUBIN,TOTAL 0.4 MG/DL (0.1-1.0); CALCIUM 9.6 MG/DL (8.5-10.1); CREATININE SERUM 0.84 MG/DL (0.60-1.30); POTASSIUM 4.3 MMOL/L (3.6-5.0); TOTAL PROTEIN 7.3 GM/DL (6.4-8.2)
[2021-04-27 12:45] VITALS: BP 151/94
--- NOTE | 2021-04-27 15:19 | Cardiology Stress Test Report ---
Stress Test Report Date of Procedure/Referring: Date of Procedure: Apr 27, 2021 Ade Fraser Admitting Physician Tyson Presley MD Indications: HTN Baseline Heart Rate: 62 Baseline Blood Pressure: Blood Pressure Systolic: 151 Blood Pressure Diastolic: 94 Vital Signs Date Time Temp Pulse Resp B/P (MAP) Pulse Ox O2 Delivery O2 Flow Rate FiO2 04/27/21 12:45 74 18 151/94 (113) 98 Room Air Baseline Vital Signs Vital Signs Date Time Temp Pulse Resp B/P (MAP) Pulse Ox O2 Delivery O2 Flow Rate FiO2 04/27/21 12:45 74 18 151/94 (113) 98 Room Air Baseline EKG: Baseline EKG: NSR Summary: After explaining the procedure and details to the patient, he signed the consent and was brought to the stress nuclear laboratory. Patient exercised on standard Pino protocol, EKG, heart rate and blood pressure were monitored continuously, resting and stress doses of radio tracer were injected, imaging was acquired and reviewed in the short axis, horizontal long axis and vertical long axis views Patient was able to exercise for a total of 9 minutes on Pino protocol, METs 10.5 Maximum heart rate 131 Maximum blood pressure 214/73 Stress EKG, Minimal nondiagnostic changes Recovery EKG, Return to baseline TID: 1.09 SSS: 6 SDS: 5 EF: 60 Conclusion: 1. Good exercise tolerance for a total of 9 minutes on standard Pino protocol, 10.5 METS achieving 86% of maximal expected heart rate 2. Appropriate heart rate response to exercise with severe hypertensive resp onse to exercise with peak blood pressure 214/73 3. Minimal nondiagnostic EKG changes with exercise return to baseline during r ecovery 4. Diaphragmatic attenuation with reversible ischemia involving the mid to apical inferior wall and inferolateral wall 5. Normal left ventricular size, EF 60% SAJAN JACINTO MD Apr 27, 2021 15:19
== END ==
LOC: CARD 11:00
PROVIDERS: ATTEND Physician Assistant
DX: I11.9 Hypertensive heart disease without heart failure (principal); E78.2 Mixed hyperlipidemia
CPT/HCPCS: 78452; 80053; 80061; 93017; 93306; A9502; 36415

== ENCOUNTER 2021-05-09 07:08 | Day surgery (SDC) | payer MEDICARE, OTHER ==
[2021-05-09] VITALS (8 sets, daily range): BP systolic 118–172; BP diastolic 73–96
[~2021-05-09] VITALS: Ht 190.5 cm; Wt 95.3 kg
[~2021-05-09 07:08] MED LIST changes: -ASCO500T17 PO; -CA C1TAB78 PO; -CALC-250 PO; -MULT1CAP PO; -ZINC220T3 PO
[2021-05-09] MEDS ORDERED: LIDOCAINE 1% INJ 20 ML 20 ML VIAL ONE (07:13)
[2021-05-09] MEDS ORDERED: HEParin (CATH LAB) 1,000 ML IV ONE ×2 (07:13→07:33)
[2021-05-09] MEDS ORDERED: NS IV 1000 ML 1,000 ML ONE (07:13)
[2021-05-09] MEDS ORDERED: NS IV 1000 ML 1,000 ML IV SCH ×2 (07:15→10:00)
[2021-05-09] MEDS ORDERED: fentaNYL INJ 100 MCG/2 ML AMP ONE (07:32)
[2021-05-09] MEDS ORDERED: VERAPAMIL 5 MG/2 ML (CALAN) VIAL IV ONE (07:32)
[2021-05-09] MEDS ORDERED: MIDAZOLAM 5 MG/5 ML (VERSED) VIAL ONE (07:32)
[2021-05-09] MEDS ORDERED: HEParin 1000 UNIT/ML (10ML VIAL) FOR BOLUS ONE (07:33)
[2021-05-09] MEDS ORDERED: NITRO DRIP 25000 MCG/D5W 250 ML IV ONE (07:33)
[2021-05-09 07:46] LABS: HEMATOCRIT 43 % (40-54); HEMOGLOBIN 14.5 g/dL (13.3-17.7); MEAN CORPUSCULAR HEMOGLOBIN 32 pg (25-34); MEAN CORPUSCULAR HGB CONC 34 g/dL (32-36); MEAN CORPUSCULAR VOLUME 93 fL (80-99); PLATELET COUNT 203 10^3/uL (130-400); WHITE BLOOD COUNT 7.7 10^3/uL (4.3-11.0)
--- NOTE | 2021-05-09 07:48 | Diagnostic Imaging Report ---
INDICATION: Heart disease, dizziness and hypertension. Comparison made with prior examination 01/13/2019. FINDINGS: The heart size, mediastinal configuration, and pulmonary vascularity are within normal limits. There is no pleural effusion, pneumothorax, or pneumonia. The osseous structures are unremarkable. IMPRESSION: No acute cardiopulmonary abnormality. Dictated by: Dictated on workstation # [id number]
[2021-05-09] MEDS ORDERED: MULT1CAP PO (07:53)
[2021-05-09] MEDS ORDERED: CALC-250 PO (07:53)
[2021-05-09] MEDS ORDERED: ZINC220T3 PO (07:53)
[2021-05-09] MEDS ORDERED: CA C1TAB78 PO (07:53)
[2021-05-09] MEDS ORDERED: ASCO500T17 PO (07:53)
[2021-05-09 08:07] LABS: ALBUMIN 3.9 GM/DL (3.2-4.5); BILIRUBIN,TOTAL 0.4 MG/DL (0.1-1.0); CALCIUM 9.3 MG/DL (8.5-10.1); CREATININE SERUM 0.78 MG/DL (0.60-1.30); POTASSIUM 3.9 MMOL/L (3.6-5.0); TOTAL PROTEIN 7.1 GM/DL (6.4-8.2)
[2021-05-09 08:13] LABS: PROTHROMBIN TIME PATIENT 13.3 SEC (12.2-14.7)
--- NOTE | 2021-05-09 09:05 | Conscious Sedation/ASA ---
Conscious Sedation Pre-Proced Time 09:05 ASA Score 3 For ASA 3 and 4: Consider anesthesia and medical clearance. Also, for patients with a history of failed moderate sedation consider anesthesia. Airway Lungs Heart ASA score ASA 1: a normal healthy patient ASA 2: a patient with a mild systemic disease (mid diabetes, controlled hypertension, obesity x ASA 3: a patient with a severe systemic disease that limits activity (angina, COPD, prior Myocardial infarction) ASA 4: a patient with an incapacitating disease that is a constant threat to life (CHF, renal failure) ASA 5: a moribund patient not expected to survive 24 hrs. (ruptured aneurysm) ASA 6: a declared brain- patient whose organs are being harvested. For emergent operations, add the letter E after the classification Mallampati Classification Grade 3 Sedation Plan Analgesia, Amnesia, Plan communicated to team members, Discussed options with patient/fam, Discussed risks with patient/fam The patient is an appropriate candidate to undergo the planned procedure, sedation, and anesthesia. The patient immediately re-assessed prior to indication. SAJAN JACINTO MD May 09, 2021 09:05
[2021-05-09] MEDS ORDERED: ADENOSINE 90 MG/30 ML (ADENOSCAN) VIAL IV ONE (09:35)
--- NOTE | 2021-05-09 09:55 | Discharge Inst-Post CATH ---
Discharge Inst-CATH/EP Problems Reviewed?: Yes Post Cardiac Cath/EP D/C Inst Follow Up/Plan Appointment with Dr. Viveros's office in 2 to 4 weeks <b>CARDIAC CATH/EP PROCEDURE DISCHARGE INSTRUCTIONS</b> ACTIVITY * Go Home directly and rest. * Limit activity of the leg (or wrist if it was used) for 7 days including aer obics, swimming, jogging, bicycling, etc. * Restrict stair-climbing for 7 days if possible, if not, climb up with your non-cath leg, then bring together on the same step. * Avoid lifting, pushing, pulling or excessive movement of the affected extremi ty for 7 days. * Customary sexual activity may be resumed after 2 days-use caution not to use a position that strains or causes pain to the affected extremity. * No driving for 24 hours. * NO SMOKING. * Avoid straining for bowel movements for 7 days. * Gentle walking on level ground is allowed. * Returning to work will depend on the type of procedure and the results. Your doctor will discuss this with you. CALL YOUR DOCTOR FOR ANY OF THE FOLLOWING: *If bleeding from the puncture site occurs- Apply gentle pressure to site with clean cloth and call your doctor or EMS. * If a knot or lump forms under the skin, increases in size, or causes pain. * If bruising appears to be worsening or moving further down your leg instead of disappearing. * Temperature above 101 F. CARE OF YOUR GROIN INCISION; * Bruising or purple discoloration of the skin near the puncture site is common. * You may shower only, no bathtub bathing for 5 days. Be careful to avoid slipping as your leg may feel stiff. * If a closure device was used on your femoral artery, please see the attached guide regarding care of the device and your leg. * Leave dressing on FOR 24 hours. CARE OF YOUR WRIST INCISION; * Bruising or purple discoloration of the skin near the puncture site is common. * You may shower. * DO NOT submerge wrist. * Leave dressing on FOR 24 hours. SAJAN VIVEROS MD May 09, 2021 09:55
--- NOTE | 2021-05-09 10:03 | Cardiac Cath Report ---
Cardiac Cath Report Physician (s)/Photo Cartographer (s) Physician SAJAN JACINTO MD Pre-Procedure Diagnosis Pre-Procedure Diagnosis: Coronary artery disease Post-Procedure Note Procedure Start Date: May 09, 2021 Name of Procedure: Left heart catheterization FFR to the right coronary artery Findings/Procedure Note PROCEDURE NOTE: 71-year-old gentleman with history of hyperlipidemia, had an abnormal stress test with inferior wall ischemia, scheduled for cardiac catheterization possible PTCA. After explaining the procedure to the patient, all pros and cons were explained, all questions were answered. The patient signed the consent and then he was placed on the cardiac catheterization laboratory. Groin was prepped SL fashion local anesthesia was used. Sheath placed in the right radial artery, [place] catheter advanced to the left ventricular cavity, pressure was measured, pullback LV to aorta was done, intubated the right and left coronary system, angiogram was done. Patient has a borderline lesion in the distal right coronary artery, Jak right guide was used advanced to the right coronary system and FFR wire was advanced to the distal right coronary artery Baseline FFR was 0.97, after adenosine challenge it was as low as 0.86 which is considered nonobstructive disease. Angiogram done showed no complication At the end of the procedure the sheath was removed. Vascular band deployed FINDINGS: Hemodynamics LV 117/20, end-diastolic pressure of 20 Aorta 112/69 mean of 57 ANATOMY: Left Main is free of obstructive disease Left Anterior Descending is slightly tortuous with mild bridging in the distal LAD Left Circumflex is free of obstructive disease Right Coronary Artery has mild stenosis proximally, moderate stenosis distally, FFR was 0.97 at baseline and 0.86 after adenosine challenge LV Gram was not done, pressure was measured CONCLUSION: 1. Moderate stenosis in the distal right coronary artery, mild stenosis proximally, not significant by FFR 2. 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 Mildly elevated left ventricular end-diastolic pressure DISCUSSION AND RECOMMENDATION: Patient was instructed on starting aspirin, he has baseline LDL of 138, we will continue monitoring, educated on diet and exercise and will reevaluate in 3 months Anesthesia Type: Conscious Sedation Estimated blood loss (mL): 15 ml Contrast Amount: 65 ml Total Radiation Dose: 664 mGy Post-Procedure Diagnosis Post-operative diagnosis: Coronary artery disease Hyperlipidemia Palpitation SAJAN JACINTO MD May 09, 2021 10:03
== END 2021-05-09 12:17 | disposition home or self-care (01) ==
LOC: CATH 07:08 → SDC 10:03 → CATH 12:17
PROVIDERS: ATTEND Internal Medicine Cardiovascular Disease
DX: I25.10 Atherosclerotic heart disease of native coronary artery without angina pectoris (principal); R00.2 Palpitations; I25.89 Other forms of chronic ischemic heart disease; I10 Essential (primary) hypertension; I65.23 Occlusion and stenosis of bilateral carotid arteries; E78.2 Mixed hyperlipidemia; Z79.899 Other long term (current) drug therapy; Z87.891 Personal history of nicotine dependence; Z98.890 Other specified postprocedural states
CPT/HCPCS: 71045; 80053; 85027; 85610; 85730; 87081; 93458; 93571; C1769; C1887; C1894; 36415

== ENCOUNTER → 2021-05-09 | Outpatient (CLI) | payer OTHER ==
[~2021-05-09] MED LIST changes: +ASCO500T17 PO; +CA C1TAB78 PO; +CALC-250 PO; -CATHETER FLUSH 10 ML SYR IV PRN; +MULT1CAP PO; +ZINC220T3 PO
== END ==
LOC: CARD
PROVIDERS: ATTEND Internal Medicine Cardiovascular Disease
DX: Z53.9 Procedure and treatment not carried out, unspecified reason (principal)